=== PATIENT | female | born 1945 | race Caucasian/White ===

== ENCOUNTER 2016-06-15 12:21 | Emergency (ER) | payer MEDICARE ==
[~2016-06-15] VITALS: Ht 157.5 cm; Wt 160.0 kg
[~2016-06-15 12:21] MED LIST: ALBU18HF INHALATION; AZIT250T94 PO; IBUP800T25 PO
[2016-06-15] MEDS ORDERED: ZOLP10TA5 PO (12:26)
[2016-06-15] MEDS ORDERED: FAMO20TA18 PO (12:26)
[2016-06-15] MEDS ORDERED: VENL150T PO (12:27)
[2016-06-15] MEDS ORDERED: LISI20TA11 PO (12:27)
[2016-06-15] MEDS ORDERED: PREG150C PO (12:28)
[2016-06-15] MEDS ORDERED: PRAZ2CAP2 PO (12:28)
[2016-06-15] MEDS ORDERED: CLON0.5T4 PO (12:30)
[2016-06-15 13:02] VITALS: Ht 157.5 cm; Wt 160.0 kg
--- NOTE | 2016-06-15 13:54 | ERD ---
ER Documentation Chief Complaint Date/Time DATE: 06/15/16 TIME: 13:36 Chief Complaint R81 FULL ARREST FROM ASSISTED LIVING, FOUND UNREPONSIVE, CPR STARTED HPI 71-year-old woman brought in by EMS for cardiac arrest. She was last seen normal at about 4 AM. We learned that she had a long history of daily heavy opioid use and was opioid dependent. EMS found multiple empty bottles at her bedside which were suspected to be opiates. Upon EMS arrival she was pulseless , apneic, and had bradycardic narrow complex rhythm. She was placed on high flow oxygen, chest compressions were performed at the scene en route. An IV line was established at the scene and she was given multiple doses of naloxone intravenously as well as epinephrine without response. EMS state at one point they felt pulses in route and then lost the pulses some time during transport, she was transported here unresponsive. She has no known cardiac history, no history of cancer or depression. HPI was supplemented by speaking to her conservator who later called and EMS upon arrival. Patient arrived at about noon and was last seen normal about 8 hours ago. ROS All systems reviewed and are negative except as per history of present illness. Medications Home Meds Reported Medications Clonazepam* (Clonazepam*) 0.5 Mg Tablet, 0.5 MG PO QID, TAB 06/15/16 Pregabalin* (Lyrica*) 150 Mg Capsule, 150 MG PO BID, CAP 06/15/16 Prazosin Hcl* (Prazosin Hcl*) 2 Mg Capsule, 2 MG PO HS, CAP 06/15/16 Lisinopril* (Lisinopril*) 20 Mg Tablet, 20 MG PO DAILY, #30 TAB 06/15/16 Venlafaxine Hcl* (Venlafaxine Hcl ER*) 150 Mg Tab.er.24, 150 MG PO BID, TAB.SA 06/15/16 Famotidine* (Famotidine*) 20 Mg Tablet, 20 MG PO BID, #60 TAB 06/15/16 Zolpidem Tartrate* (Zolpidem Tartrate*) 10 Mg Tablet, 10 MG PO QHS Y for INSOMNIA, #30 TAB 06/15/16 Discontinued Scripts Ibuprofen* (Motrin*) 800 Mg Tab, 800 MG PO Q6H Y for PAIN AND OR ELEVATED TEMP, #30 TAB Prov:MARY WARD MD 06/05/15 Azithromycin* (Zithromax*) 250 Mg Tablet, 250 MG PO DAILY for 4 Days, TAB Prov:MARY WARD MD 06/05/15 Albuterol Sulfate* (Ventolin HFA*) 18 Gm Hfa.aer.ad, 2 PUFF INHALATION Q4H, #1 INHALER Prov:MARY WARD MD 06/05/15 Allergies Allergies: Coded Allergies: Penicillins (Verified Allergy, Unknown, 06/05/15) Sulfa (Sulfonamide Antibiotics) (Verified Allergy, Unknown, 06/05/15) acetaminophen (Verified Allergy, Unknown, 06/05/15) PMhx/Soc Hypertension, gastritis, benzodiazepine use, opioid dependence and heavy opioid use. Hx Alcohol Use: No Hx Substance Use: No Hx Tobacco Use: No Smoking Status: Never smoker FmHx Family History: No diabetes Physical Exam Vitals Vital Signs Date Time Temp Pulse Resp B/P Pulse Ox O2 Delivery O2 Flow Rate FiO2 06/15/16 13:02 36 Physical Exam GENERAL: Well-developed, well-nourished appearing woman who is unresponsive, eyes closed, GCS equals 3 HEENT: Moist mucous membranes, pink conjunctiva, no cervical spine tenderness or step-off deformities, pupils fixed and dilated, evidence of recent emesis with gastric contents around the mouth and neck NEURO: Unresponsive, pupils fixed and dilated, no facial asymmetry, no corneal reflex CARDIAC: No heart sounds auscultated, no pulses palpated LUNGS: Clear bilaterally no wheezing crackles or stridor ABDOMEN: Soft nontender, no guarding, no rigidity, no rebound, no psoas sign no obturator sign. Normoactive bowel sounds SKIN: Cool to touch and dry, no abrasions, lacerations, or ecchymosis EXTREMITIES: No clubbing cyanosis or edema, calves are bilaterally symmetrical, no Homans sign, no popliteal cord sign. Distal pulses equal and bilateral PSYCH: Unable to assess Procedures/MDM IV line was established patient was placed on sql tech rhythm strip revealed a narrow complex bradycardic rhythm at about 30 bpm. Immediate high- quality chest compressions were started and we began advanced cardiac life support. Patient was given multiple doses of epinephrine intravenously, normal saline 1 L, as well as sodium bicarbonate and calcium gluconate. Emergent endotracheal Intubation by me: Pre assessment performed. Pre-oxygenation performed with 100% oxygen RSI: Performed w/o complication or hypoxic events. Medications as ordered. Blade: Mac 4 ET Tube: 7.5 cm Depth: 23 cm at the lip Intubation confirmed by colorimetric CO2, equal breath sounds, quiet over the stomach. I performed advanced cardiac life support and continued high-quality chest compressions like this for over 20 minutes. Patient never regained pulses and remained in pulseless electrical activity with continued bradycardia. I performed bedside ultrasound and obtained parasternal long and short views of the heart. There was no cardiac wall motion activity and no activity at the aortic and mitral valves. Patient had no signs of life, no spontaneous breathing, no corneal reflex, no gag reflex, and no pulses. I pronounced her at 1228 June 15, 2016. Critical Care: Time: 33 minutes, this was time separate from other procedures. Treatments/Evaluations: Close monitoring and treatment of unstable vital signs, cardiorespiratory, and neurologic status, while maintaining tight balance of fluid, respiratory, and cardiac interventions. Patient's health conservator was contacted, [place] department of [employer] was also contacted and case was discussed. Departure Diagnosis: Primary Impression: Cardiac arrest Condition: Critical STEVE KRUEGER MD Jun 15, 2016 13:49
== END 2016-06-15 15:50 | disposition expired ==
LOC: E/R 12:21
DX: I46.9 Cardiac arrest, cause unspecified (principal); I10 Essential (primary) hypertension
CPT/HCPCS: 31500; 92950; 94770